=== PATIENT | male | born 1965 | race Caucasian/White ===

== ENCOUNTER 2021-04-06 16:18 | Inpatient (IN) | payer BC ==
[~2021-04-06] VITALS: Ht 177.8 cm; Wt 131.7 kg
[2021-06-16] VITALS (10 sets, daily range): BP systolic 116–155; BP diastolic 66–95; PULSE 49–68; TEMP 97.1–98.2
--- NOTE | 2021-06-16 07:30 | NUR ---
The patient ambulated back to [facility] independently using a steady gait and appeared to tolerate the activity well. Vital signs obtained. Consent signed. 18G IV started in left hand with one stick, LR infusing without difficulty. Assessment completed. PAYAM hose applied to right lower extremity. Surgical scrub completed to left knee. Significant other brought back to be at his bedside. Call light is within reach. The patient denies any further needs at this time. Will continue to monitor the patient.
[2021-06-16] MEDS ORDERED: COZAAR 25MG25 MG/TAB PO (07:36)
[2021-06-16] MEDS ORDERED: ONE-A-DAY ESSE1 EACH PO (07:36)
--- NOTE | 2021-06-16 07:45 | NUR ---
The patient was taken back via cart to the operating room at this time. The patient's belongings were taken over to the recovery room and will be transferred up with the patient to the 3rd floor post operatively. The patient's significant other took the patient's glasses in a case with her and is going to wait in waiting room during the surgery and speak to the doctor after the surgery is complete.
--- NOTE | 2021-06-16 11:10 | NUR ---
PT TO ROOM 328 PER BED WITH REPORT FROM [facility] PAC[facility] @1050. PT IS A/O X3 DROWSEY BUT AROUSES TO VERBAL. LUNGS CTA, BOWEL SOUNDS PRESENT, OCCLUSIVE YISEL WRAP OVER TRADITIONAL DRESSING. SCDS PLACED BILATERALLY. IV TO PUMP PER ORDERS. FRIEND DOM AT BEDSIDE. ORIENTED PT AND FAMILY TO MED.
--- NOTE | 2021-06-16 17:45 | NUR ---
PT UP TO BR, VOIDED AND RETURNED TO BED. PT AMBULATED WITH SLOW STEADY GAIT.
--- NOTE | 2021-06-16 19:45 | NUR ---
Pt. sitting up in bed at this time. Pt. is A&OX3, assessment complete. INT to lt. hand patent. Pt. reports pain to lt. knee at a 6 on pain scale, gave pain meds per orders. Dressing to Lt. knee CDI. Pt. denies further needs, call light within reach.
[2021-06-17 03:43] VITALS: BP 135/82; PULSE 66; TEMP 98.3
[2021-06-17 07:19] LABS: HEMATOCRIT 37.9 % (42.0-52.0); HEMOGLOBIN 12.8 g/dl (13.5-18.0)
[2021-06-17 07:43] VITALS: BP 147/79; PULSE 67; TEMP 98.1
--- NOTE | 2021-06-17 08:30 | NUR ---
PATIENT ALERT AND ORIENTED X4. PATIENT SITTING UP IN BED. PATIENT IS COMPLAINING OF PAIN, PAIN MEDS GIVEN PER ORDERS AND PATIENT REPOSITIONED. PATIENT HAS IV TO LEFT HAND INT. PATIENT WEARING PAYAM HOSE AND AWAITING BREAKFAST AND PHYSICAL THERAPY. POSSIBLE DISCHARGE TODAY. NO FURTHER NEEDS AT THIS TIME. CALL LIGHT WITHIN REACH. HEAD TO TOE ASSESSMENT COMPLETE.
[2021-06-17 10:00] VITALS: BP 143/88; PULSE 71; TEMP 98.5
--- NOTE | 2021-06-17 11:29 | NUR ---
mend worker met with patient to discuss discharge plan. Patient lives in [place] with his life partner ([phone]) Patient reports he has always been independent with all activities of daily living and uses no assist. Patient's PC is Dr. Maxwell and uses [email or web address] in [place], [place] for a pharmacy. Patient states he delieves he has a DPOA-HC establish. Patient plans to discharge home. *Discharge Plan: Home with outpatient PT*
--- NOTE | 2021-06-17 11:50 | NUR ---
PATIENT DRESSING CHANGED TO AQUACELL AND PAYAM HOSE REAPPLIED. KNEE ELEVATED WITH ONE PILLOW AND PATIENT STATES THAT PAIN HAS IMPROVED.
--- NOTE | 2021-06-17 12:45 | NUR ---
AGREE WITH FROYLAN'S ASSESSMENTS THIS SHIFT. DRESSING CHANGE COMPLETE. INCISION CDI WITH WELL APPROXIMATED EDGES, COVERED WITH DRESSING.
--- NOTE | 2021-06-17 13:10 | NUR ---
Initial visit; Patient thanked [employer] Supervisor for stopping and offering God's blessings and keeping him in her prayers.
[2021-06-17 16:00] VITALS: BP 146/80; PULSE 71; TEMP 98.3
[2021-06-17] MEDS ORDERED: ASPI325T6 PO (16:49)
[2021-06-17] MEDS ORDERED: ROXICODONE 55 MG/TAB PO (16:49)
[2021-06-17] MEDS ORDERED: ULTRAM 50MG TAB50 MG PO (16:50)
[2021-06-17] MEDS ORDERED: SENOKOT S 50 MG1 TAB PO (16:50)
[2021-06-17 19:22] VITALS: BP 157/87; PULSE 72; TEMP 98.4
--- NOTE | 2021-06-17 21:25 | NUR ---
PT RESTING COMFORTABLY IN BED, REQUESTING PAIN MEDICATION TO "STAY ON TOP OF PAIN". EVEING MEDICATIONS GIVEN. DRESSING TO L KNEE IS CLEAN, DRY, AND INTACT. PT REQUESTS FOR IT TO BE ELEVATED AND HAS AN ICE PACK PLACED ON IT. NO EDEMA NOTED TO BLE, PAYAM HOSE ON. PT DENIES ANY OTHER NEEDS AT THIS TIME. CALL LIGHT WITHIN REACH. WILL CONTINUE TO MONITOR.
[2021-06-18 00:24] VITALS: BP 147/86; PULSE 64; TEMP 98.2
[2021-06-18 04:02] VITALS: BP 133/68; PULSE 59; TEMP 98.1
--- NOTE | 2021-06-18 06:19 | NUR ---
PT HAD A RESTFUL NIGHT, WITH MILD PAIN.
[2021-06-18 07:37] VITALS: BP 151/87; PULSE 75; TEMP 97.8
--- NOTE | 2021-06-18 08:00 | NUR ---
Patient sitting up in recliner. Alert and oriented x 3. Assessment complete. Jef hose to BLE. Aquacell to left knee is CDI. INT to left hand without complications. Denies further needs at this time.
[2021-06-18 11:09] VITALS: BP 149/80; PULSE 85; TEMP 98.4
--- NOTE | 2021-06-18 12:25 | NUR ---
Left msg for SAHIL [place], patient refusing to stay for afternoon therapy. Would like to discharge now.
--- NOTE | 2021-06-18 13:10 | NUR ---
Discharge education provided to patient. Educated on new medications and medication safety. Patient educated on when to call provider and follow up appointments. All questions answered. INT to left hand discontinued, catheter tip intact. No further needs at this time.
--- NOTE | 2021-06-18 13:40 | NUR ---
Patient out by wheelchair with surgical staff.
== END 2021-06-18 13:40 | disposition home or self-care (01) | DRG 470 ==
LOC: SURG 06-16 06:39 → INPTSU 06-16 06:39 → SURG 06-16 07:30
PROVIDERS: ADMIT Orthopaedic Surgery
PROC: 0SRD0J9 Replacement of Left Knee Joint with Synthetic Substitute, Cemented, Open Approach (ICD-10-PCS; principal; 2021-06-16 08:30)
DX: M17.12 Unilateral primary osteoarthritis, left knee (principal)
CPT/HCPCS: A9284; C1713; C1776; J0690; J2250; J2704; J3010; J7030; J7120